=== PATIENT | male | born 1955 | race Caucasian/White ===

== ENCOUNTER 2021-02-14 11:28 | Emergency (ER) | payer MEDICARE, OTHER ==
[~2021-02-14] VITALS: Ht 175.3 cm; Wt 90.9 kg
[2021-02-14 11:35] VITALS: TEMP 98.2
[2021-02-14] MEDS ORDERED: PRAVACHOL80 MG PO (11:44)
[2021-02-14] MEDS ORDERED: NORCO 325 MG-51 TAB PO (12:03)
[2021-02-14 12:59] VITALS: BP 160/88; PULSE 71
== END 2021-02-14 13:08 | disposition home or self-care (01) ==
LOC: COL.ER 11:28
DX: S52.591A Other fractures of lower end of right radius, initial encounter for closed fracture (principal); E78.5 Hyperlipidemia, unspecified; Z79.899 Other long term (current) drug therapy; W18.09XA Striking against other object with subsequent fall, initial encounter

== ENCOUNTER → 2022-04-30 | Outpatient (CLI) | payer MEDICARE, OTHER ==
[~2022-04-30] MED LIST: NORCO 325 MG-51 TAB PO; PRAVACHOL80 MG PO
== END ==
LOC: COL.RAD 11:21
DX: K57.30 Diverticulosis of large intestine without perforation or abscess without bleeding (principal); N20.0 Calculus of kidney